=== PATIENT | male | born 1950 | race Caucasian/White ===

== ENCOUNTER 2017-07-21 04:32 | Inpatient (IN) | payer BC, OTHER ==
--- NOTE | 2017-07-21 04:53 | PDOC ---
History of Present Illness - General Chief Complaint: Asthma Stated Complaint: ASTHMA Time Seen by Provider: 07/21/17 04:34 History Source: Patient, EMS - History of Present Illness Initial Comments: 07/21/17 05:12 67-year-old male with history of hypertension diabetes and asthma reports that he has been having persistent weakness for 2 days. As per patient patient has been using albuterol every 2 hours with no relief in shortness of breath. Patient at 2 AM with severe shortness of breath and wheezing, patient decided to call 911. Patient brought to the emergency to the ambulance, ride to the hospital patient received 3 DuoNeb, Decadron 10 mg and 2 mg of magnesium sulfate. Patient reports that he is feeling slightly better however continues to have shortness of breath. Past History - Past Medical History Allergies/Adverse Reactions: Allergies Allergy/AdvReac Type Severity Reaction Status Date / Time No Known Allergies Allergy Verified 07/21/17 05:09 Review of Systems - Review of Systems Able to Perform ROS?: Yes Is the patient limited Russian proficient: No Constitutional: No: Symptoms Reported, See HPI, Chills, Diaphoresis, Fever, Loss of Appetite, Malaise, Night Sweats, Weakness, Weight Stable, Unintentional Wgt. Loss, Unexplained wgt Loss, Other Respiratory: Yes: Cough, SOB at Rest, Wheezing Cardiac (ROS): Yes: Chest Pain *Physical Exam - Vital Signs 07/21/17 05:39 Last Vital Signs Temp Pulse Resp BP Pulse Ox 88 20 138/72 98 07/21/17 04:34 07/21/17 04:34 07/21/17 04:34 07/21/17 05:04 - Physical Exam General Appearance: Yes: Appropriately Dressed Respiratory/Chest: positive: Rhonchi, Wheezing Cardiovascular: positive: Regular Rhythm, Regular Rate Gastrointestinal/Abdominal: positive: Normal Bowel Sounds, Soft Extremity: positive: Normal Capillary Refill, Normal Inspection, Normal Range of Motion Integumentary: positive: Normal Color, Dry, Warm Neurologic: positive: Fully Oriented, Alert, Normal Mood/Affect ED Treatment Course - LABORATORY CBC & Chemistry Diagram: 07/21/17 05:00 07/21/17 05:00 - RADIOLOGY Radiology Studies Ordered: Category Date Time Status CHEST PA & LAT [RAD] Stat Radiology 07/21/17 04:34 Ordered Medical Decision Making - Medical Decision Making 07/21/17 06:55 patient with wheezing through out will give albuterol neb x IH 07/21/17 06:57 *DC/Admit/Observation/Transfer Diagnosis at time of Disposition: Asthma exacerbation Qualifiers: Asthma severity: mild Asthma persistence: persistent Qualified Code(s): J45.31 - Mild persistent asthma with (acute) exacerbation - Discharge Dispostion Decision to Admit order: Yes - Referrals - Patient Instructions Printed Discharge Instructions: DI for Asthma -- Adult - Post Discharge Activity
[2017-07-21] MEDS ORDERED: ALBUTEROL SO4 0.083% IH SOL 2.5 MG/3 ML VIAL.NEB. NEB ONE ×4 (05:00→07:03)
[2017-07-21 05:12] LABS: BASO % 0.7 % (0-2.0); EOS % 14.5 % (0-4.5); HEMATOCRIT 36.8 % (35.4-49); HEMOGLOBIN 12.3 GM/dL (11.7-16.9); MCH 27.9 pg (25.7-33.7); MCHC 33.3 g/dl (32.0-35.9); MEAN CELL VOLUME 83.7 fl (80-96); MEAN PLT VOLUME 8.2 fl (7.5-11.1); MONO % 3.7 % (3.8-10.2); NEUT % 62.1 % (42.8-82.8); PLATELET COUNT 200 K/MM3 (134-434); RDW 13.4 % (11.9-15.9)
[2017-07-21 05:42] LABS: ALBUMIN 3.6 g/dl (3.4-5.0); ANION GAP 11 (8-16); BLOOD UREA NITROGEN 18 mg/dL (7-18); CALCIUM 8.5 mg/dL (8.5-10.1); CHLORIDE 104 mmol/L (98-107); CO2 22 mmol/L (21-32); GLUCOSE,RANDOM 141 mg/dL (74-106); SGOT/AST 18 U/L (15-37); SGPT/ALT 23 U/L (12-78); SODIUM 137 mmol/L (136-145)
[2017-07-21 05:43] LABS: ALK PHOS 59 U/L (45-117); BILIRUBIN,TOTAL 0.6 mg/dL (0.2-1.0); N-TERMINAL BNP 13.63 pg/ml (5-125); TOT PROT 7.2 g/dl (6.4-8.2)
--- NOTE | 2017-07-21 08:52 | PDOC ---
*Physical Exam - Vital Signs Last Vital Signs Temp Pulse Resp BP Pulse Ox 97.4 F L 79 18 129/69 100 07/21/17 07:04 07/21/17 07:04 07/21/17 07:04 07/21/17 07:04 07/21/17 07:04 ED Treatment Course - LABORATORY CBC & Chemistry Diagram: 07/21/17 05:00 07/21/17 05:00 - ADDITIONAL ORDERS Additional order review: Laboratory Results 07/21/17 07/21/17 05:00 05:00 Sodium 137 Potassium 4.0 Chloride 104 Carbon Dioxide 22 Anion Gap 11 BUN 18 Creatinine 1.0 Creat Clearance w eGFR > 60 Random Glucose 141 H Calcium 8.5 Total Bilirubin 0.6 AST 18 ALT 23 Alkaline Phosphatase 59 Troponin I < 0.02 B-Natriuretic Peptide 13.63 Total Protein 7.2 Albumin 3.6 07/21/17 05:00 RBC 4.40 MCV 83.7 MCHC 33.3 RDW 13.4 MPV 8.2 Neutrophils % 62.1 Lymphocytes % 19.0 Monocytes % 3.7 L Eosinophils % 14.5 H Basophils % 0.7 - Medications Given in the ED: ED Medications Discontinued Medications Generic Name Dose Route Start Last Admin Trade Name Freq PRN Reason Stop Dose Admin Albuterol Sulfate 1 amp 07/21/17 05:00 07/21/17 05:27 Ventolin 0.083% Nebulizer Soln - NEB 07/21/17 05:01 1 amp ONCE ONE Administration Albuterol Sulfate 1 amp 07/21/17 06:55 07/21/17 07:02 Ventolin 0.083% Nebulizer Soln - NEB 07/21/17 06:56 1 amp ONCE ONE Administration Medical Decision Making - Medical Decision Making 07/21/17 07:50 Patient received in sign out from TRISTON Llanos. Patient here with asthma exacerbation. Patient was given a total of 5 DuoNeb along with magnesium and Decadron prior to my assessment. Patient states still feels tight in the chest with intermittent wheezing. Patient on exam with expiratory wheezing scattered greater on the right. O2 sat 100%. No abdominal or intercostal muscle usage. Patient with normal labs and chest x-ray. will consider MedSurg. . Microblog sent 07/21/17 09:[address] magdaleno and requesting consultation to Dr. Kennedy vault manager. Patient also added for d-dimer to rule out other etiologies such as a PE. Patient be admitted to [facility] 07/21/17 10:[address] kennedy and aware of consultation 07/21/17 10:48 Laboratory Tests 07/21/17 10:00 D-Dimer 217 *DC/Admit/Observation/Transfer Diagnosis at time of Disposition: Asthma exacerbation Qualifiers: Asthma severity: mild Asthma persistence: persistent Qualified Code(s): J45.31 - Mild persistent asthma with (acute) exacerbation - Discharge Dispostion Decision to Admit order: Yes - Referrals - Patient Instructions - Post Discharge Activity
--- NOTE | 2017-07-21 11:04 | PN ---
Progress Note (short form) - Note Progress Note: PULMONARY CONSULTATION DICTATED 07/21/17 IMP ACUTE ASTHMA EXACERBATION DM HTN PLAN IV STEROIDS INHALED BRONCHODILATORS O2 NEEDED MONITOR PEAK FLOW DVT PROPHYLAXIS DR MCKEON Problem List - Problems (1) Diabetes Code(s): E11.9 - TYPE 2 DIABETES MELLITUS WITHOUT COMPLICATIONS (2) Asthma exacerbation Code(s): J45.901 - UNSPECIFIED ASTHMA WITH (ACUTE) EXACERBATION Qualifiers: Asthma severity: mild Asthma persistence: persistent Qualified Code(s): J45.31 - Mild persistent asthma with (acute) exacerbation (3) HTN (hypertension) Code(s): I10 - ESSENTIAL (PRIMARY) HYPERTENSION
[2017-07-21] MEDS: methylPREDNISolone NA SUCC 40 MG/1 ML VIAL IVPUSH SCH ×3 (11:35→21:25)
[2017-07-21] MEDS: ENOXAPARIN NA (PORCINE) 40 MG/0.4 ML DISP.SYRIN SQ SCH (11:35)
[2017-07-21 12:01] VITALS: BMI 31.1
--- NOTE | 2017-07-21 12:10 | CONS ---
DATE OF CONSULTATION: 07/21/2017 REFERRING PHYSICIAN: Preston Alonzo MD HISTORY OF PRESENT ILLNESS: The patient is a 67-year-old male with a past medical history of chronic asthma since approximately 20 years, hypertension, [id number] diabetes mellitus, history of tobacco use (approximately 1 pack a day for many years) quit 20 years ago, admitted to [facility] with complaint of 1-week history of increasing shortness of breath, cough, and chest congestion. Patient denied any fevers, chills, nausea, vomiting, or diaphoresis. He denies any recent URI symptoms. He states for the past couple of days, his symptoms worsened, and despite using inhaler every 2 hours, it offered no relief. He presented to the emergency room. Approximately 2 a.m. on morning of admission, the patient developed severe shortness of breath and wheezing and 911 was called. Patient was brought to the emergency room. Prior to arrival, he received Duo-Neb therapy. In the emergency room, he received Decadron, magnesium sulfate with some clinical improvement. He denied any history of respiratory failure in the past with ventilatory support. He denies any history of recent travel. There no history of DVT or PE in the past. He denies any cardiac disease. PAST MEDICAL HISTORY: Again includes chronic asthma, hypertension, diabetes. REVIEW OF SYSTEMS: Positive for cough. Positive for shortness of breath. Positive for bronchospasm. No fever, no chills, no chest pain, no palpitations, no abdominal pain. SOCIAL HISTORY: Born in [place], moved to [facility] 14 years ago, history of tobacco use (was 1 pack per day, quit 20 years ago), and he is a retired construction consultant. PHYSICAL EXAMINATION: General: The patient is a well-developed, well-nourished male, awake, alert, currently in no acute distress. Vital signs: He is afebrile, blood pressure 129/69, respiratory rate 18, O2 saturation is 100% on room air. HEENT: Head is normocephalic atraumatic. Neck: Supple. Heart: Regular, S1, S2. Chest: Bilateral wheezes throughout. Abdomen: Soft. Bowel sounds positive. Extremities: No cyanosis or edema. LABORATORIES: WBC is 6, hemoglobin 12.3, hematocrit 36.8, platelet count of 200,000. D-dimer is 217. BUN is 18, creatinine 1.0. Chest x-ray reveals no infiltrates, no effusions. IMPRESSION: 1. Acute asthma exacerbation. 2. Diabetes. 3. Hypertension. PLAN: IV steroids, inhaled bronchodilators, supplemental O2, monitor peak flow, PFT as an outpatient, also DVT prophylaxis. GRACIE MCKEON M.D. AGUSTIN/[id number]
--- NOTE | 2017-07-21 12:48 | EKG ---
Test Reason : Blood Pressure : / mmHG Vent. Rate : 083 BPM Atrial Rate : 083 BPM P-R Int : 158 ms QRS Dur : 096 ms QT Int : 394 ms P-R-T Axes : 042 038 046 degrees QTc Int : 462 ms NORMAL SINUS RHYTHM NORMAL ECG NO PREVIOUS ECGS AVAILABLE Confirmed by MD GARY, SANDRA ([id number]) on 07/21/2017 12:47:28 PM Referred By: Confirmed By:SANDRA VEGA MD
[2017-07-21] MEDS: BUDESONIDE/FORMETEROL FUMARATE 160/4.5 mcg INHALER IH SCH ×2 (14:24→21:24)
[2017-07-21] MEDS ORDERED: ACETAMINOPHEN 325 MG TABLET (FP) PO PRN (15:45)
--- NOTE | 2017-07-21 15:46 | HP ---
Admitting History and Physical - Primary Care Physician PCP: Preston Alonzo - Admission Chief Complaint: dyspnea/acute copd/asthma exacerbation History of Present Illness: 67 y/o male history of htn, dm, asthma here with 2 days worsening dyspnea on exertion with failed treatment at home and in ED with nebulizers and inhalers. History Source: Medical Record - Smoking History Smoking history: Former smoker Have you smoked in the past 12 months: No - Alcohol/Substance Use Hx Alcohol Use: No Home Medications - Allergies Allergies/Adverse Reactions: Allergies Allergy/AdvReac Type Severity Reaction Status Date / Time No Known Allergies Allergy Verified 07/21/17 05:09 Review of Systems - Review of Systems Constitutional: reports: Other Eyes: reports: No Symptoms HENT: reports: No Symptoms, Ringing in Ears Cardiovascular: reports: Shortness of Breath Respiratory: reports: Cough, Exercise Intolerance, SOB, SOB on Exertion, Wheezing Gastrointestinal: reports: No Symptoms Genitourinary: reports: No Symptoms Musculoskeletal: reports: No Symptoms Integumentary: reports: No Symptoms Neurological: reports: No Symptoms Endocrine: reports: No Symptoms Hematology/Lymphatic: reports: No Symptoms Psychiatric: reports: No Symptoms Physical Examination Vital Signs: Vital Signs Temperature 98.6 F 07/21/17 11:51 Pulse Rate 88 07/21/17 11:51 Respiratory Rate 20 07/21/17 11:51 Blood Pressure 145/78 07/21/17 11:51 O2 Sat by Pulse Oximetry (%) 99 07/21/17 11:51 Constitutional: Yes: Moderate Distress Eyes: Yes: WNL HENT: Yes: WNL Neck: Yes: WNL Cardiovascular: Yes: WNL Respiratory: Yes: On Nasal O2, SOB, Wheezes Gastrointestinal: Yes: WNL Renal/: Yes: WNL Musculoskeletal: Yes: WNL Extremities: Yes: WNL Edema: No Peripheral Pulses WNL: Yes Integumentary: Yes: WNL Wound/Incision: Yes: Clean/Dry Neurological: Yes: WNL ...Motor Strength: WNL Psychiatric: Yes: WNL Labs: CBC, BMP 07/21/17 05:00 07/21/17 05:00 Imaging - Results Chest X-ray: Report Reviewed Problem List - Problems (1) Asthma exacerbation Code(s): J45.901 - UNSPECIFIED ASTHMA WITH (ACUTE) EXACERBATION Qualifiers: Asthma severity: mild Asthma persistence: persistent Qualified Code(s): J45.31 - Mild persistent asthma with (acute) exacerbation (2) Diabetes Code(s): E11.9 - TYPE 2 DIABETES MELLITUS WITHOUT COMPLICATIONS (3) HTN (hypertension) Code(s): I10 - ESSENTIAL (PRIMARY) HYPERTENSION Assessment/Plan steroids iv nebs 02 support pulmonary eval check echo for EF% and r/o valvular disease monitor bgm while on steroids for resp support dvt prophylaxis
[2017-07-21] MEDS: ALBUTEROL SO4 2.5/IPRATROPIUM 0.5 INH SOL 3 ML VIAL.NEB. NEB PRN ×2 (15:55→20:16)
[2017-07-21] MEDS: RANITIDINE HCL 150 MG TABLET (FP) PO SCH (17:12)
[2017-07-21] MEDS ORDERED: PT OWN MED DRAWER 7, Y5N ONE (21:20)
[2017-07-21] MEDS: MONTELUKAST NA 10 MG TABLET PO SCH (21:25)
[2017-07-22] MEDS: methylPREDNISolone NA SUCC 40 MG/1 ML VIAL IVPUSH SCH ×3 (02:42→17:40)
[2017-07-22] MEDS: INSULIN SLIDING SCALE (NOVOLOG) 1 VIAL SQ SCH ×4 (06:21→22:51)
[2017-07-22 07:35] LABS: HEMATOCRIT 37.6 % (35.4-49); HEMOGLOBIN 12.7 GM/dL (11.7-16.9); MCHC 33.8 g/dl (32.0-35.9); MEAN CELL VOLUME 82.9 fl (80-96); MEAN PLT VOLUME 8.4 fl (7.5-11.1); PLATELET COUNT 211 K/MM3 (134-434); RBC 4.53 M/mm3 (4.00-5.60); RDW 13.2 % (11.9-15.9); WHITE BLOOD COUNT 12.9 K/mm3 (4.0-10.0)
[2017-07-22 07:54] LABS: CHLORIDE 105 mmol/L (98-107); POTASSIUM 4.2 mmol/L (3.5-5.1); SODIUM 135 mmol/L (136-145)
[2017-07-22 08:09] LABS: ALBUMIN 3.7 g/dl (3.4-5.0); ALK PHOS 53 U/L (45-117); ANION GAP 8 (8-16); BILIRUBIN,TOTAL 0.7 mg/dL (0.2-1.0); BLOOD UREA NITROGEN 20 mg/dL (7-18); CALCIUM 8.3 mg/dL (8.5-10.1); CO2 22 mmol/L (21-32); CREATININE 0.9 mg/dL (0.7-1.3); GLUCOSE,RANDOM 182 mg/dL (74-106); SGOT/AST 11 U/L (15-37); SGPT/ALT 24 U/L (12-78); TOT PROT 7.3 g/dl (6.4-8.2)
--- NOTE | 2017-07-22 09:00 | PN ---
Progress Note, Physician History of Present Illness: Less SOB - Current Medication List Current Medications: Active Medications Acetaminophen (Tylenol -) 650 mg PO Q6H PRN PRN Reason: PAIN OR FEVER Albuterol/Ipratropium (Duoneb -) 1 amp NEB Q4H PRN PRN Reason: SHORTNESS OF BREATH Last Admin: 07/21/17 20:16 Dose: 1 amp Budesonide/Formoterol Fumarate (Symbicort 160/4.5mcg -) 2 puff IH BID [facility] Last Admin: 07/21/17 21:24 Dose: 2 puff Enoxaparin Sodium (Lovenox -) 40 mg SQ DAILY [facility] Last Admin: 07/21/17 11:35 Dose: 40 mg Insulin Aspart (Novolog Vial Sliding Scale -) 1 vial SQ ACHS [facility]; Protocol Last Admin: 07/22/17 06:21 Dose: Not Given Methylprednisolone Sodium Succinate (Solu-Medrol -) 40 mg IVPUSH Q6H-IV [facility] Last Admin: 07/22/17 02:42 Dose: 40 mg Montelukast Sodium (Singulair -) 10 mg PO HS [facility] Last Admin: 07/21/17 21:25 Dose: 10 mg Ranitidine HCl (Zantac -) 150 mg PO DAILY [facility] Last Admin: 07/21/17 17:12 Dose: 150 mg - Objective Vital Signs: Vital Signs Temperature 98.1 F 07/22/17 05:58 Pulse Rate 80 07/22/17 05:58 Respiratory Rate 20 07/22/17 05:58 Blood Pressure 132/75 07/22/17 05:58 O2 Sat by Pulse Oximetry (%) 98 07/21/17 21:00 Cardiovascular: Yes: Regular Rate and Rhythm, S1, S2 Respiratory: Yes: Diminished, Rhonchi Gastrointestinal: Yes: Normal Bowel Sounds, Soft Labs: CBC, BMP 07/22/17 06:30 07/22/17 06:30 Problem List - Problems (1) Asthma exacerbation Assessment/Plan: -Nebs -IV Steroids -Pulm on case Code(s): J45.901 - UNSPECIFIED ASTHMA WITH (ACUTE) EXACERBATION Qualifiers: Asthma severity: mild Asthma persistence: persistent Qualified Code(s): J45.31 - Mild persistent asthma with (acute) exacerbation (2) Diabetes Assessment/Plan: -bgn -ss Code(s): E11.9 - TYPE 2 DIABETES MELLITUS WITHOUT COMPLICATIONS (3) HTN (hypertension) Code(s): I10 - ESSENTIAL (PRIMARY) HYPERTENSION
[2017-07-22] MEDS: RANITIDINE HCL 150 MG TABLET (FP) PO SCH (09:18)
[2017-07-22] MEDS: ENOXAPARIN NA (PORCINE) 40 MG/0.4 ML DISP.SYRIN SQ SCH (09:18)
[2017-07-22] MEDS ORDERED: PT OWN MED DRAWER 7, Y5N ONE ×2 (09:21→21:34)
[2017-07-22] MEDS: BUDESONIDE/FORMETEROL FUMARATE 160/4.5 mcg INHALER IH SCH (09:22)
[2017-07-22 11:07] LABS: CHOLESTEROL 161 mg/dL (50-200); HDL CHOLESTEROL 96 mg/dL (40-60); TRIGLYCERIDES 48 mg/dL (35-160)
--- NOTE | 2017-07-22 13:16 | PN ---
Progress Note, Physician History of Present Illness: pulmonary alert,feeling better,dyspnea improving - Current Medication List Current Medications: Active Medications Acetaminophen (Tylenol -) 650 mg PO Q6H PRN PRN Reason: PAIN OR FEVER Albuterol/Ipratropium (Duoneb -) 1 amp NEB Q4H PRN PRN Reason: SHORTNESS OF BREATH Last Admin: 07/21/17 20:16 Dose: 1 amp Budesonide/Formoterol Fumarate (Symbicort 160/4.5mcg -) 2 puff IH BID [facility] Last Admin: 07/22/17 09:22 Dose: 2 puff Enoxaparin Sodium (Lovenox -) 40 mg SQ DAILY [facility] Last Admin: 07/22/17 09:18 Dose: 40 mg Insulin Aspart (Novolog Vial Sliding Scale -) 1 vial SQ ACHS [facility]; Protocol Last Admin: 07/22/17 11:20 Dose: Not Given Methylprednisolone Sodium Succinate (Solu-Medrol -) 40 mg IVPUSH Q6H-IV [facility] Last Admin: 07/22/17 09:18 Dose: 40 mg Montelukast Sodium (Singulair -) 10 mg PO HS [facility] Last Admin: 07/21/17 21:25 Dose: 10 mg Ranitidine HCl (Zantac -) 150 mg PO DAILY [facility] Last Admin: 07/22/17 09:18 Dose: 150 mg - Objective Vital Signs: Vital Signs Temperature 98.4 F 07/22/17 10:00 Pulse Rate 84 07/22/17 10:00 Respiratory Rate 20 07/22/17 10:00 Blood Pressure 126/69 07/22/17 10:00 O2 Sat by Pulse Oximetry (%) 99 07/22/17 09:00 Constitutional: Yes: Well Nourished, Calm Eyes: Yes: WNL HENT: Yes: WNL Neck: Yes: WNL Cardiovascular: Yes: Regular Rate and Rhythm, S1, S2 Respiratory: Yes: Wheezes (few scattered wheezes) Gastrointestinal: Yes: Normal Bowel Sounds, Soft Extremities: Yes: WNL Edema: No Labs: CBC, BMP 07/22/17 06:30 07/22/17 06:30 Problem List - Problems (1) Diabetes Code(s): E11.9 - TYPE 2 DIABETES MELLITUS WITHOUT COMPLICATIONS (2) Asthma exacerbation Code(s): J45.901 - UNSPECIFIED ASTHMA WITH (ACUTE) EXACERBATION Qualifiers: Asthma severity: mild Asthma persistence: persistent Qualified Code(s): J45.31 - Mild persistent asthma with (acute) exacerbation (3) HTN (hypertension) Code(s): I10 - ESSENTIAL (PRIMARY) HYPERTENSION Assessment/Plan IMP ACUTE ASTHMA EXACERBATION IMPROVING DM HTN PLAN STEROID TAPER CAN SWITCH TO PO IN AM IF CONDITION CONTINUES TO IMPROVE INHALED BRONCHODILATORS O2 NEEDED MONITOR PEAK FLOW DVT PROPHYLAXIS DR MCKEON Problem List - Problems (1) Diabetes Code(s): E11.9 - TYPE 2 DIABETES MELLITUS WITHOUT COMPLICATIONS (2) Asthma exacerbation Code(s): J45.901 - UNSPECIFIED ASTHMA WITH (ACUTE) EXACERBATION Qualifiers: Asthma severity: mild Asthma persistence: persistent Qualified Code(s): J45.31 - Mild persistent asthma with (acute) exacerbation (3) HTN (hypertension) Code(s): I10 - ESSENTIAL (PRIMARY) HYPERTENSION
[2017-07-22] MEDS: ALBUTEROL SO4 2.5/IPRATROPIUM 0.5 INH SOL 3 ML VIAL.NEB. NEB PRN (16:50)
[2017-07-22] MEDS: MONTELUKAST NA 10 MG TABLET PO SCH (22:51)
[2017-07-23] MEDS: BUDESONIDE/FORMETEROL FUMARATE 160/4.5 mcg INHALER IH SCH ×2 (00:18→09:36)
[2017-07-23] MEDS: methylPREDNISolone NA SUCC 40 MG/1 ML VIAL IVPUSH SCH (01:44)
[2017-07-23] MEDS: INSULIN SLIDING SCALE (NOVOLOG) 1 VIAL SQ SCH ×2 (06:22→11:46)
--- NOTE | 2017-07-23 08:05 | DS ---
Physical Examination Vital Signs: Vital Signs Temperature 97.7 F 07/23/17 05:30 Pulse Rate 76 07/23/17 05:30 Respiratory Rate 20 07/23/17 05:30 Blood Pressure 144/90 07/23/17 05:30 O2 Sat by Pulse Oximetry (%) 99 07/22/17 21:00 Findings/Remarks: feels better no cp or sob Cardiovascular: Yes: Regular Rate and Rhythm Respiratory: Yes: Regular, CTA Bilaterally Gastrointestinal: Yes: Normal Bowel Sounds, Soft Labs: CBC, BMP 07/22/17 06:30 07/22/17 06:30 Discharge Summary Reason For Visit: EXACERBATION OF ASTHMA Current Active Problems Asthma exacerbation (Acute) Diabetes (Acute) HTN (hypertension) (Acute) Hospital Course: - Problems (1) Asthma exacerbation Assessment/Plan: -Nebs -IV Steroids--to po -Pulm on case Code(s): J45.901 - UNSPECIFIED ASTHMA WITH (ACUTE) EXACERBATION Qualifiers: Asthma severity: mild Asthma persistence: persistent Qualified Code(s): J45.31 - Mild persistent asthma with (acute) exacerbation (2) Diabetes Assessment/Plan: -bgn -ss Code(s): E11.9 - TYPE 2 DIABETES MELLITUS WITHOUT COMPLICATIONS (3) HTN (hypertension) Code(s): I10 - ESSENTIAL (PRIMARY) HYPERTENSION - Instructions - Home Medications Comprehensive Discharge Medication List: Ambulatory Orders Acetaminophen [Tylenol .Regular Strength -] 650 mg PO Q6H PRN tablet 07/23/17 Albuterol 2.5/Ipratropium 0.5 [Duoneb -] 1 amp NEB Q4H amp 07/23/17 Budesonide/Formeterol Fumarate [SYMBICORT 160/4.5mcg -] 2 puff IH BID #1 inhaler 07/23/17 Montelukast Na [Singulair -] 10 mg PO HS #30 tablet 07/23/17 Ranitidine [Zantac -] 150 mg PO DAILY #30 tablet 07/23/17 predniSONE [Deltasone -] 30 mg PO BID #30 tablet 07/23/17
[2017-07-23] MEDS ORDERED: PT OWN MED DRAWER 7, Y5N ONE (09:33)
[2017-07-23] MEDS: RANITIDINE HCL 150 MG TABLET (FP) PO SCH (09:36)
[2017-07-23] MEDS: ENOXAPARIN NA (PORCINE) 40 MG/0.4 ML DISP.SYRIN SQ SCH (09:45)
[2017-07-23] MEDS ORDERED: ALBUTEROL SO4 2.5/IPRATROPIUM 0.5 INH SOL 3 ML VIAL.NEB. NEB SCH (10:00)
[2017-07-23] MEDS ORDERED: predniSONE 10 MG TABLET (UD) PO SCH (10:00)
[2017-07-23 10:58] VITALS: BP 151/81; PULSE 73; TEMP 98.4
--- NOTE | 2017-07-23 11:14 | PN ---
Progress Note (short form) - Note Progress Note: PULMONARY States breathing is improving. Less cough and wheezing. Last Vital Signs Temp Pulse Resp BP Pulse Ox 98.4 F 73 18 151/81 97 07/23/17 10:00 07/23/17 10:00 07/23/17 10:00 07/23/17 10:00 07/23/17 09:00 Gen: NAD at rest Heart: RRR Lung: decreased breath sounds at the bases, no wheezes Abd: soft, nontender Ext: no edema CBC, BMP 07/22/17 06:30 07/22/17 06:30 Active Medications Acetaminophen (Tylenol -) 650 mg PO Q6H PRN PRN Reason: PAIN OR FEVER Albuterol/Ipratropium (Duoneb -) 1 amp NEB Q4HPO [facility] Last Admin: 07/23/17 10:13 Dose: 1 amp Budesonide/Formoterol Fumarate (Symbicort 160/4.5mcg -) 2 puff IH BID [facility] Last Admin: 07/23/17 09:36 Dose: 2 puff Enoxaparin Sodium (Lovenox -) 40 mg SQ DAILY [facility] Last Admin: 07/23/17 09:45 Dose: 40 mg Insulin Aspart (Novolog Vial Sliding Scale -) 1 vial SQ ACHS [facility]; Protocol Last Admin: 07/23/17 06:22 Dose: Not Given Montelukast Sodium (Singulair -) 10 mg PO HS [facility] Last Admin: 07/22/17 22:51 Dose: 10 mg Prednisone (Deltasone -) 30 mg PO BID [facility] Last Admin: 07/23/17 09:36 Dose: 30 mg Ranitidine HCl (Zantac -) 150 mg PO DAILY [facility] Last Admin: 07/23/17 09:36 Dose: 150 mg A/P Acute Asthma Exacerbation HTN DM - prednisone taper - inhaled bronchodilators - monitor peak flow - can d/c home from pulmonary standpoint - outpt PFTs
[2017-07-23] MEDS ORDERED: INSULIN (NOVOLOG) ASPART 100 UNITS/ML 10ML VIAL ONE (11:40)
== END 2017-07-23 13:08 | disposition home or self-care (01) | DRG 203 ==
LOC: JER 04:32 → JERBED 09:43 → J6S 11:46
PROVIDERS: ADMIT Family Medicine; ATTEND Family Medicine
DX: J45.31 Mild persistent asthma with (acute) exacerbation (principal); I10 Essential (primary) hypertension; E11.9 Type 2 diabetes mellitus without complications; Z87.891 Personal history of nicotine dependence
CPT/HCPCS: 36415; 71046-TC-FY; 80053; 80061; 82607; 82962; 83036; 83721; 83880; 84443; 84484; 85025; 85027; 85379; 93005; 93010; 93306-TC; 94150; 94640; 99283-25; J7620

== ENCOUNTER 2018-06-14 22:56 | Emergency (ER) | payer OTHER ==
[2018-06-14 23:07] VITALS: BP 147/65; TEMP 98.1; BMI 28.3
[2018-06-15] MEDS ORDERED: ALPRAZolam 0.25 MG TABLET PO ONE (00:36)
--- NOTE | 2018-06-15 00:36 | PDOC ---
History of Present Illness - General Chief Complaint: Psychiatric Stated Complaint: anxiety Time Seen by Provider: 06/14/18 23:53 - History of Present Illness Initial Comments: The pt is a 68M w/ a history of HTN and T2DM who presents for evaluation of 1 week of startling awake while trying to go to sleep. He reports he's concerned because he wants to be sure it's not his heart or his blood sugar causing his symptoms. He reports having similar symptoms in the past and was told at one point that he would need a sleep study by his PCP which he did not obtain. He was also seen three years ago and told he has panic attacks but did not have it further evaluated/worked up. States that his and him got into an argument approximately 1 week ago and since that time she has been staying with her son so he has been home alone and does not work. So another reason he is concerned is that he's having these symptoms alone at home. He denies MCGEE, vision changes, chest pain, abdominal pain, N/V/C/D, dysuria, hematuria Denies SI/HI History was obtained with manager operations and procurement: #[id number] 06/15/18 00:37 Past History - Past Medical History Allergies/Adverse Reactions: Allergies Allergy/AdvReac Type Severity Reaction Status Date / Time No Known Allergies Allergy Verified 06/15/18 01:34 Home Medications: Ambulatory Orders Acetaminophen [Tylenol .Regular Strength -] 650 mg PO Q6H PRN tablet 07/23/17 Albuterol 2.5/Ipratropium 0.5 [Duoneb -] 1 amp NEB Q4H amp 07/23/17 Budesonide/Formeterol Fumarate [SYMBICORT 160/4.5mcg -] 2 puff IH BID #1 inhaler 07/23/17 Montelukast Na [Singulair -] 10 mg PO HS #30 tablet 07/23/17 Ranitidine [Zantac -] 150 mg PO DAILY #30 tablet 07/23/17 predniSONE [Deltasone -] 30 mg PO BID #30 tablet 07/23/17 Asthma: Yes COPD: No Diabetes: Yes HTN: Yes - Suicide/Smoking/Psychosocial Hx Smoking History: Never smoked Have you smoked in the past 12 months: No Information on smoking cessation initiated: No Hx Alcohol Use: No Drug/Substance Use Hx: No Substance Use Type: None Hx Substance Use Treatment: No Review of Systems - Review of Systems Able to Perform ROS?: Yes Comments:: GENERAL/CONSTITUTIONAL: No fever or chills. No weakness HEAD, EYES, EARS, NOSE AND THROAT: No change in vision. No ear pain or discharge. No sore throat CARDIOVASCULAR: No chest pain RESPIRATORY: Denies cough, hemoptysis GASTROINTESTINAL: No nausea, vomiting, diarrhea or constipation GENITOURINARY: No dysuria, frequency, or change in urination MUSCULOSKELETAL: No joint or muscle swelling or pain. No neck or back pain SKIN: No rash NEUROLOGIC: No headache, vertigo, loss of consciousness, or change in strength/ sensation ENDOCRINE: No increased thirst. No abnormal weight change HEMATOLOGIC/LYMPHATIC: No anemia, easy bleeding, or history of blood clots ALLERGIC/IMMUNOLOGIC: No hives or skin allergy 06/15/18 00:42 Is the patient limited Sinhala proficient: Yes *Physical Exam - Vital Signs Last Vital Signs Temp Pulse Resp BP Pulse Ox 98.1 F 77 17 147/65 100 06/14/18 22:58 06/14/18 22:58 06/14/18 22:58 06/14/18 22:58 06/14/18 22:58 - Physical Exam Comments: GENERAL: Awake, alert, and oriented to person/place/time HEAD: No signs of trauma, normocephalic, atraumatic EYES: PERRLA, EOMI, sclera anicteric, conjunctiva clear ENT: Hearing grossly normal, nares patent, oropharynx clear without exudates. Moist mucosa LUNGS: No distress, speaks full sentences, clear to auscultation bilaterally HEART: Regular rate and rhythm, normal S1 and S2, no murmurs appreciated, peripheral pulses normal and equal bilaterally ABDOMEN: Soft, nontender, normoactive bowel sounds. No guarding, no rebound EXTREMITIES: Normal inspection, Normal range of motion, no edema. No clubbing or cyanosis NEUROLOGICAL: Cranial nerves II through XII grossly intact. Normal speech, no focal sensorimotor deficits SKIN: Warm, Dry 06/15/18 00:44 ED Treatment Course - LABORATORY CBC & Chemistry Diagram: 06/15/18 00:45 06/15/18 00:45 Medical Decision Making - Medical Decision Making The pt is a 68M who presents for evaluation for startling awake at night during sleep possibly 2/2 sleep apnea vs anxiety ED Course Labs sent Xanax 0.5mg PO once for anxiety 06/15/18 00:45 No leukocytosis No anemia 06/15/18 01:22 Trop I neg Lytes wnl No KYRA Pt feels improved Plan for D/C w/ PCP and Psych f/u Discharge instructions and return precautions given Pt in agreement and verbalized understanding Dispo: home 06/15/18 01:48 *DC/Admit/Observation/Transfer Diagnosis at time of Disposition: Anxiety HTN (hypertension) Qualifiers: Hypertension type: unspecified Qualified Code(s): I10 - Essential (primary) hypertension - Discharge Dispostion Disposition: HOME Condition at time of disposition: Improved Decision to Admit order: No - Referrals Referrals: Scarlet Mendes [Primary Care Provider] - Aidan Orozco MD [Staff Physician] - - Patient Instructions Printed Discharge Instructions: DI for Anxiety -- Adult, DI for Obstructive Sleep Apnea -- Adult Print Language: KAZAKH - Post Discharge Activity
[2018-06-15] MEDS ORDERED: ALPRAZolam 0.25 MG TABLET ONE (00:40)
[2018-06-15 01:05] LABS: BASO % 0.3 % (0-2.0); EOS % 2.9 % (0-4.5); HEMATOCRIT 38.6 % (35.4-49); HEMOGLOBIN 13.1 GM/dL (11.7-16.9); LYMPH % 19.4 % (8-40); MCH 28.9 pg (25.7-33.7); MCHC 33.8 g/dl (32.0-35.9); MEAN CELL VOLUME 85.3 fl (80-96); NEUT % 71.4 % (42.8-82.8); PLATELET COUNT 216 K/MM3 (134-434); RBC 4.53 M/mm3 (4.00-5.60); RDW 13.1 % (11.9-15.9); WHITE BLOOD COUNT 8.9 K/mm3 (4.0-10.0)
--- NOTE | 2018-06-15 01:11 | PDOC ---
Attending Attestation - Resident Resident Name: Jacob Sanonan - ED Attending Attestation I have performed the following: I have examined & evaluated the patient, The case was reviewed & discussed with the resident, I agree w/resident's findings & plan, Exceptions are as noted - HPI HPI: 06/15/18 01:09 68 yo male came in to the ED because he has had difficulty sleeping and has been waking up multiple times during the night. His recently left him and this is causing some anxiety He was supposed to get a sleep apnea study but has not done this yet - Physicial Exam PE: 06/15/18 01:11 wnwd 68 yo male with normal vital signs p/w several concerns. He was to make sure his glucose is OK and that he is not having an acute cardiac issue because he keeps waking up during his sleep head ncat eyes andre eomi neck supple lungs cta b/l cvs [id number] abdomen nontender,soft skin warm and dry extremities from,motor strength 5/5, b/l, no deformities neuro axox3,no gross focal neuro deficits - Medical Decision Making 06/15/18 01:17 ekg is NSR with no st elevations or depressions no fever,no cp,no vomiting,no cough diff diag includes sleep apnea,anxiety 06/15/18 01:36 labs are unremarakble pt discharged home to follow up with his PCP
[2018-06-15 01:31] LABS: ALBUMIN 3.7 g/dl (3.4-5.0); ALK PHOS 65 U/L (45-117); ANION GAP 8 MMOL/L (8-16); BILIRUBIN,TOTAL 1.1 mg/dL (0.2-1); BLOOD UREA NITROGEN 22 mg/dL (7-18); CALCIUM 8.9 mg/dL (8.5-10.1); CHLORIDE 101 mmol/L (98-107); CO2 25 mmol/L (21-32); CREATININE 1.1 mg/dL (0.55-1.3); GLUCOSE,RANDOM 138 mg/dL (74-106); POTASSIUM 4.5 mmol/L (3.5-5.1); SGOT/AST 15 U/L (15-37); SGPT/ALT 24 U/L (13-61); SODIUM 135 mmol/L (136-145); TOT PROT 7.3 g/dl (6.4-8.2)
[2018-06-15 01:38] VITALS: PULSE 76
== END 2018-06-15 01:47 | disposition home or self-care (01) ==
LOC: JER 22:56
DX: F41.9 Anxiety disorder, unspecified (principal); I10 Essential (primary) hypertension; E11.9 Type 2 diabetes mellitus without complications; Z79.84 Long term (current) use of oral hypoglycemic drugs; J45.909 Unspecified asthma, uncomplicated
CPT/HCPCS: 36415; 80053; 84484; 85025; 99282-25

== ENCOUNTER 2018-12-29 08:50 | Day surgery (SDC) | payer OTHER ==
[~2018-12-29 08:50] MED LIST: ACETAMINOPHEN 325 MG TABLET (FP) PO PRN; OFLOXACIN 0.3% OPHTHALMIC SOLUTION 5 ML BOTTLE OP SCH
[2018-12-29] MEDS ORDERED: OFLOXACIN 0.3% OPHTHALMIC SOLUTION 5 ML BOTTLE ONE (09:36)
[2018-12-29] MEDS ORDERED: TRIAMCINOLONE ACET 40MG/1ML VIAL ONE (12:34)
[2018-12-29] MEDS ORDERED: LIDOCAINE 1%-EPI 1:100,000 30 ML MDV IJ ONE (12:35)
[2018-12-29] MEDS ORDERED: MIDAZOLAM HCL 2 MG/2 ML SINGLE DOSE VIAL ONE (12:47)
[2018-12-29] MEDS ORDERED: TETRACAINE 0.5% OPHTH SOLN 2 ML BOTTLE OS ONE (12:52)
[2018-12-29] MEDS ORDERED: POVIDONE-IODINE 5% OPHTHALMIC PREP 30 ML SOLUTION OS ONE (12:53)
[2018-12-29] MEDS ORDERED: LIDOCAINE 1%/EPI 1:100000 (20 ML MULTI DOSE VIAL) IJ ONE ×2 (12:59)
[2018-12-29] MEDS ORDERED: BSS (NA/CA/MG/K) BALANCED SALT SOLUTION OPHTH SOLN 15 ML BOTTLE OS ONE (12:59)
[2018-12-29] MEDS ORDERED: TRIAMCINOLONE ACET 40MG/1ML VIAL NR ONE (13:38)
[2018-12-29] MEDS ORDERED: ACETAMINOPHEN 325 MG TABLET (FP) ONE (15:32)
[2018-12-29] MEDS ORDERED: ACETAMINOPHEN 325 MG TABLET (FP) PO ONE (15:35)
[2018-12-29 15:44] VITALS: BP 152/79; PULSE 85; TEMP 97.8
--- NOTE | 2018-12-30 08:33 | OP ---
DATE OF OPERATION: DATE OF DICTATION: 12/29/2018 PREOPERATIVE DIAGNOSIS: Recurrent pterygium, left eye. POSTOPERATIVE DIAGNOSIS: Recurrent pterygium, left eye. OPERATION: Excision of pterygium with conjunctival autograft and amniotic membrane transplantation, left eye. SURGEON: Jairon Blake M.D. ANESTHESIA: Topical MAC. COMPLICATIONS: None. PROCEDURE: The patient was brought to the operating room and correctly identified along with the operative site. He was then prepped and draped in the usual sterile fashion, including 5% Betadine solution in the conjunctival sac and an eyelid drape. An eyelid speculum was then placed into the left eye. The base of the pterygium was marked with a marking pen and 2 relaxing incisions were made superiorly and inferiorly in the pterygium and dissection was performed down to bare sclera using Calixto scissors. The pterygium was then bluntly dissected from the corneal surface using a combination of Calixto scissors and sponges. After the pterygium was removed, a significant amount conjunctival retraction was noted. The margins were freshened with Calixto scissors. Care was made not to damage the medial erector tendon by performing the excision of the pterygium while elevating it off the surface. The sclera was cleaned of any fibrotic tissue using Colibri forceps and Calixto scissors. The conjunctival defect was then measured and measured 7 mm vertically at the limbus by 9 mm vertically at the base by 5 mm horizontally Attention was then placed at the superotemporal conjunctiva. Using a marking pen, an area that was 8 mm x 10 mm x 5 mm was marked. Subjectively lidocaine was given, and the conjunctival autograft was fashioned. A small buttonhole, however, was noted in the middle of the autograft. The decision then was made to also use amniotic membrane. The conjunctival autograft was first secured with four 10-0 nylon sutures in the corners, and then the entire surface was covered by placing amniotic membrane over it and securing this with five 10-0 nylon interrupted sutures. At the end of the surgery, both grafts were noted to be secured and did not move with ductions of the eye. Subconjunctival Kenalog was given, the eye patched and the patient was discharged from the operating room in a stable condition. JAIRON BLAKE M.D. /[id number]
--- NOTE | 2018-12-31 14:40 | PATH ---
Surgical Pathology Report Patient Name: DINO CHICAS [facility]. Rec. #: [id number] /Age/Gender: 1950 (Age: 68) / M Account: [id number] Location: [facility] SURGICAL Taken: 12/29/2018 Received: 12/30/2018 Reported: 12/31/2018 Physicians: Shaun Espinal M.D. Specimen(s) Received LEFT EYE RECURRENT PTERYGIUM Clinical History Recurrent pterygium left eye Final Diagnosis EYE, LEFT, RECURRENT PTERYGIUM, EXCISION: PTERYGIUM. Electronically Signed Noemi Torrez M.D. Gross Description Received in formalin, labeled "recurrent pterygium left eye" are 2 rascon, irregular portions of soft tissue measuring 0.1 and 0.2 cm. in greatest dimension. The specimens are submitted in toto in one cassette. 12/30/201812/30/2018
== END 2018-12-29 16:03 | disposition home or self-care (01) ==
LOC: JASU-SURG 08:50
PROVIDERS: ATTEND Ophthalmology
PROC: 08U107Z Supplement of Left Eye with Autologous Tissue Substitute, Open Approach (ICD-10-PCS; principal; 2018-12-29 11:00)
DX: H11.062 Recurrent pterygium of left eye (principal); I10 Essential (primary) hypertension; E11.9 Type 2 diabetes mellitus without complications; Z79.84 Long term (current) use of oral hypoglycemic drugs; J44.9 Chronic obstructive pulmonary disease, unspecified
CPT/HCPCS: 82962; 88304-TC

== ENCOUNTER 2020-06-20 04:41 | Day surgery (SDC) | payer OTHER ==
[2020-06-19 11:48] VITALS: BMI 30.9
[~2020-06-20 04:41] MED LIST changes: -ACETAMINOPHEN 325 MG TABLET (FP) PO PRN; +CHONDROITIN SU A/HYALUR SOD 1 KIT IO ONE; +EPINEPHrine/PF 1 MG/1 ML (1:1,000) AMPULE SQ ONE; +LIDOCAINE HCL 1% PRESERVATIVE FREE - 30ML VIAL PNB ONE; -OFLOXACIN 0.3% OPHTHALMIC SOLUTION 5 ML BOTTLE OP SCH; +TETRACAINE 0.5% OPHTH SOLN 2 ML BOTTLE OS ONE
[2020-06-20] MEDS ORDERED: OFLOXACIN 0.3% OPHTHALMIC SOLUTION 5 ML BOTTLE ONE (08:35)
[2020-06-20] MEDS ORDERED: TROPICAMIDE 1% OPHTH SOLN 15 ML BOTTLE ONE (08:35)
[2020-06-20] MEDS ORDERED: CYCLOPENTOLATE HCL 1% OPHTH SOLN 2 ML BOTTLE ONE (08:35)
[2020-06-20] MEDS ORDERED: KETOROLAC TROMETHAMINE 0.5% EYE DROP 1 DROP DROPS ONE (08:35)
[2020-06-20] MEDS ORDERED: ACETAMINOPHEN 325 MG TABLET (FP) PO PRN (08:37)
[2020-06-20] MEDS: OFLOXACIN 0.3% OPHTHALMIC SOLUTION 5 ML BOTTLE OP SCH ×3 (09:10→09:24)
[2020-06-20] MEDS: PHENYLEPHRINE 2.5% OPHTH SOLN 15 ML BOTTLE OP SCH ×3 (09:10→09:24)
[2020-06-20] MEDS: KETOROLAC TROMETHAMINE 0.5% EYE DROP 1 DROP DROPS OP SCH ×3 (09:10→09:24)
[2020-06-20] MEDS: CYCLOPENTOLATE HCL 1% OPHTH SOLN 2 ML BOTTLE OP SCH ×3 (09:10→09:24)
[2020-06-20] MEDS: TROPICAMIDE 1% OPHTH SOLN 15 ML BOTTLE OP SCH ×3 (09:10→09:24)
[2020-06-20] MEDS ORDERED: TETRACAINE 0.5% OPHTH SOLN 2 ML BOTTLE OS ONE (11:35)
[2020-06-20] MEDS ORDERED: MIDAZOLAM HCL 2 MG/2 ML SINGLE DOSE VIAL ONE (11:35)
[2020-06-20] MEDS ORDERED: LIDOCAINE HCL 1% PRESERVATIVE FREE - 30ML VIAL PNB ONE (11:40)
[2020-06-20] MEDS ORDERED: CHONDROITIN SU A/HYALUR SOD 1 KIT IO ONE (11:41)
[2020-06-20] MEDS ORDERED: TRYPAN BLUE 0.5 ML DISP.SYRIN IO ONE (11:47)
[2020-06-20] MEDS ORDERED: CHONDROITIN SU A/HYALUR SOD 1 KIT ONE (11:48)
[2020-06-20] MEDS ORDERED: TRYPAN BLUE 0.5 ML DISP.SYRIN ONE (11:50)
[2020-06-20] MEDS ORDERED: LIDOCAINE HCL/PF 1% SDV 5ML VIAL ONE (11:50)
[2020-06-20] MEDS ORDERED: EPINEPHrine/PF 1 MG/1 ML (1:1,000) AMPULE ONE (11:50)
[2020-06-20] MEDS ORDERED: TETRACAINE 0.5% OPHTH SOLN 2 ML BOTTLE ONE (11:50)
[2020-06-20] MEDS ORDERED: POVIDONE-IODINE 5% OPHTHALMIC PREP 30 ML SOLUTION ONE (11:51)
[2020-06-20] MEDS ORDERED: ONDANSETRON 4 MG/2 ML VIAL IVPUSH PRN (13:43)
[2020-06-20] MEDS ORDERED: LACTATED RINGERS SOLUTION 1,000 ML IV SCH (13:45)
[2020-06-20 14:11] VITALS: BP 156/74; PULSE 74; TEMP 98
== END 2020-06-20 13:20 | disposition home or self-care (01) ==
LOC: JASU-SURG 04:41
PROVIDERS: ATTEND Ophthalmology
PROC: 08RK3JZ Replacement of Left Lens with Synthetic Substitute, Percutaneous Approach (ICD-10-PCS; principal; 2020-06-20 11:00)
DX: H26.9 Unspecified cataract (principal); I10 Essential (primary) hypertension; E11.9 Type 2 diabetes mellitus without complications; Z79.84 Long term (current) use of oral hypoglycemic drugs
CPT/HCPCS: 82962

== ENCOUNTER 2020-09-12 04:50 | Day surgery (SDC) | payer OTHER ==
[2020-09-10 12:56] VITALS: BMI 30.4
[~2020-09-12 04:50] MED LIST changes: +ACETAMINOPHEN 325 MG TABLET (FP) PO PRN; -CHONDROITIN SU A/HYALUR SOD 1 KIT IO ONE; -EPINEPHrine/PF 1 MG/1 ML (1:1,000) AMPULE SQ ONE; -LIDOCAINE HCL 1% PRESERVATIVE FREE - 30ML VIAL PNB ONE; +OFLOXACIN 0.3% OPHTHALMIC SOLUTION 5 ML BOTTLE OP SCH; -TETRACAINE 0.5% OPHTH SOLN 2 ML BOTTLE OS ONE
[2020-09-12] MEDS ORDERED: TETRACAINE 0.5% OPHTH SOLN 2 ML BOTTLE ONE (09:57)
[2020-09-12] MEDS ORDERED: OFLOXACIN 0.3% OPHTHALMIC SOLUTION 5 ML BOTTLE OP SCH (10:00)
[2020-09-12] MEDS ORDERED: TRIAMCINOLONE ACET 40MG/1ML VIAL ONE (11:13)
[2020-09-12] MEDS ORDERED: LIDOCAINE 1%/EPI 1:100000 (20 ML MULTI DOSE VIAL) IJ ONE ×2 (11:15)
[2020-09-12] MEDS ORDERED: TRIAMCINOLONE ACET 40MG/1ML VIAL IJ ONE (11:20)
[2020-09-12] MEDS ORDERED: POVIDONE-IODINE 5% OPHTHALMIC PREP 30 ML SOLUTION OD ONE (11:23)
[2020-09-12] MEDS ORDERED: LIDOCAINE HCL/PF 2% SDV 5ML VIAL ONE (11:28)
[2020-09-12] MEDS ORDERED: KETOROLAC TROMETHAMINE 30 MG/1 ML VIAL ONE (11:28)
[2020-09-12 13:20] VITALS: BP 134/59; PULSE 60; TEMP 99.1
== END 2020-09-12 13:05 | disposition home or self-care (01) ==
LOC: JASU-SURG 04:50
PROVIDERS: ATTEND Ophthalmology
PROC: 08U007Z Supplement of Right Eye with Autologous Tissue Substitute, Open Approach (ICD-10-PCS; principal; 2020-09-12 11:00)
DX: H11.001 Unspecified pterygium of right eye (principal); E11.9 Type 2 diabetes mellitus without complications; I10 Essential (primary) hypertension
CPT/HCPCS: 82962

== ENCOUNTER 2021-05-24 01:50 | Emergency (ER) | payer OTHER ==
[2021-05-24] MEDS ORDERED: ACETAMINOPHEN 500 MG TABLET (FP) PO ONE (02:18)
[2021-05-24] MEDS ORDERED: METHOCARBAMOL 500 MG TABLET PO ONE (02:19)
[2021-05-24] MEDS ORDERED: LIDOCAINE 5% TOPICAL PATCH TP ONE (02:19)
[2021-05-24] MEDS ORDERED: LIDOCAINE 5% TOPICAL PATCH ONE (02:36)
[2021-05-24] MEDS ORDERED: METHOCARBAMOL 500 MG TABLET ONE (02:36)
[2021-05-24] MEDS ORDERED: ACETAMINOPHEN 325 MG TABLET (FP) ONE (02:36)
[2021-05-24 03:12] VITALS: PULSE 84; BMI 29.8
[2021-05-24 07:57] VITALS: BP 148/76; TEMP 97.9
[2021-05-24] MEDS ORDERED: LIDOCAINE PATCH REMOVAL MC SCH (22:00)
== END 2021-05-24 07:50 | disposition home or self-care (01) ==
LOC: JER 01:50
DX: M54.2 Cervicalgia (principal)
CPT/HCPCS: 72125-TC; 99284-25

== ENCOUNTER 2021-07-24 09:01 | Day surgery (SDC) | payer OTHER ==
[2021-07-22 12:37] VITALS: BMI 30.4
[~2021-07-24 09:01] MED LIST changes: -OFLOXACIN 0.3% OPHTHALMIC SOLUTION 5 ML BOTTLE OP SCH
[2021-07-24] MEDS ORDERED: OFLOXACIN 0.3% OPHTHALMIC SOLUTION 5 ML BOTTLE ONE (11:28)
[2021-07-24] MEDS ORDERED: PHENYLEPHRINE 2.5% OPTHALMIC DROP BOTTLE ONE (11:28)
[2021-07-24] MEDS ORDERED: TROPICAMIDE 1% OPHTH SOLN 15 ML BOTTLE ONE (11:28)
[2021-07-24] MEDS ORDERED: CYCLOPENTOLATE HCL 1% OPHTH SOLN 2 ML BOTTLE ONE (11:28)
[2021-07-24] MEDS ORDERED: KETOROLAC TROMETHAMINE 0.5% EYE DROP 1 DROP DROPS ONE (11:28)
[2021-07-24] MEDS: PHENYLEPHRINE 2.5% OPHTH SOLN 15 ML BOTTLE OP SCH ×3 (11:35→11:45)
[2021-07-24] MEDS: CYCLOPENTOLATE HCL 1% OPHTH SOLN 2 ML BOTTLE OP SCH ×3 (11:35→11:45)
[2021-07-24] MEDS: OFLOXACIN 0.3% OPHTHALMIC SOLUTION 5 ML BOTTLE OP SCH ×3 (11:35→11:45)
[2021-07-24] MEDS: TROPICAMIDE 1% OPHTH SOLN 15 ML BOTTLE OP SCH ×3 (11:35→11:45)
[2021-07-24] MEDS: KETOROLAC TROMETHAMINE 0.5% EYE DROP 1 DROP DROPS OP SCH ×3 (11:35→11:45)
[2021-07-24] MEDS ORDERED: MIDAZOLAM HCL 2 MG/2 ML SINGLE DOSE VIAL ONE (12:02)
[2021-07-24] MEDS ORDERED: MANNITOL 25% 12.5 GM/50 ML VIAL IVPB ONE (12:05)
[2021-07-24] MEDS ORDERED: TETRACAINE 0.5% OPHTH SOLN 2 ML BOTTLE OD ONE (12:06)
[2021-07-24] MEDS ORDERED: POVIDONE-IODINE 5% OPHTHALMIC PREP 30 ML SOLUTION OD ONE (12:08)
[2021-07-24] MEDS ORDERED: TRYPAN BLUE 0.5 ML DISP.SYRIN IO ONE (12:16)
[2021-07-24] MEDS ORDERED: BSS (NA/CA/MG/K) BALANCED SALT SOLUTION OPHTH SOLN 15 ML BOTTLE IO ONE (12:17)
[2021-07-24] MEDS ORDERED: CHONDROITIN SU A/HYALUR SOD 1 KIT IO ONE (12:18)
[2021-07-24] MEDS ORDERED: LIDOCAINE HCL 1% PRESERVATIVE FREE - 30ML VIAL IO ONE (12:18)
[2021-07-24] MEDS ORDERED: EPINEPHrine/PF 1 MG/1 ML (1:1,000) AMPULE SQ ONE (12:25)
[2021-07-24 12:57] VITALS: TEMP 98.8
[2021-07-24 14:38] VITALS: BP 129/58; PULSE 93
== END 2021-07-24 13:50 | disposition home or self-care (01) ==
LOC: JASU-SURG 09:01
PROVIDERS: ATTEND Ophthalmology
PROC: 08RJ3JZ Replacement of Right Lens with Synthetic Substitute, Percutaneous Approach (ICD-10-PCS; principal; 2021-07-24 12:00)
DX: H26.9 Unspecified cataract (principal); Q11.2 Microphthalmos; E11.9 Type 2 diabetes mellitus without complications; I10 Essential (primary) hypertension; Z79.84 Long term (current) use of oral hypoglycemic drugs